=== PATIENT | male | born 1985 | race Caucasian/White ===

== ENCOUNTER 2017-01-23 14:40 | Emergency (ER) | payer OTHER ==
[2017-01-23 14:57] VITALS: TEMP 98.1; BMI 22.4
[2017-01-23] MEDS ORDERED: SODIUM CHLORIDE 0.9% 1000 ML INFUS.BAG IV ONE (16:13)
[2017-01-23 16:32] LABS: BASOPHIL 0.3 % (0-2.0); EOSINOPHIL 0.2 % (0-4.5); MCH 31.3 pg (25.7-33.7); MCHC 33.6 g/dl (32.0-35.9); MEAN CELL VOLUME 93.1 fl (80-96); NEUTROPHILS 84.3 % (42.8-82.8); PLATELET COUNT 194 K/MM3 (134-434); RDW 13.2 % (11.9-15.9)
[2017-01-23] MEDS ORDERED: DIPHTH,PERTUSS(ACELL),TET 0.5 ML DISP.SYRIN IM ONE (16:53)
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
[2017-01-23 16:54] LABS: ALBUMIN 4.2 g/dl (3.4-5.0); ALK PHOS 118 U/L (45-117); ANION GAP 6 (8-16); BILIRUBIN,TOTAL 0.4 mg/dL (0.2-1.0); CALCIUM 9.1 mg/dL (8.5-10.1); CO2 30 mmol/L (21-32); CREATININE 1.1 mg/dL (0.7-1.3); GLUCOSE,RANDOM 96 mg/dL (74-106); SGOT/AST 11 U/L (15-37); SGPT/ALT 26 U/L (12-78); TOT PROT 6.9 g/dl (6.4-8.2)
[2017-01-23] MEDS ORDERED: levETIRAcetam 500 MG/5 ML INJECTION VIAL IVPB ONE (19:54)
[2017-01-23 19:55] VITALS: BP 121/75; PULSE 64
[2017-01-23 19:57] LABS: URINE APPEARANCE CLEAR; URINE BILIRUBIN NEGATIVE (NEGATIVE); URINE BLOOD NEGATIVE (NEGATIVE); URINE COLOR LTYELLOW; URINE GLUCOSE (UA) NEGATIVE (NEGATIVE); URINE KETONE NEGATIVE (NEGATIVE); URINE NITRITE NEGATIVE (NEGATIVE); URINE PROTEIN NEGATIVE (NEGATIVE); URINE UROBILINOGEN NEGATIVE mg/dL (0.2-1.0)
[2017-01-23 20:05] LABS: URINE MARIJUANA THC NEGATIVE ng/ml (CUTOFF=50)
[2017-01-23 22:09] LABS: URINE LEUK ESTERASE Negative (NEGATIVE)
== END 2017-01-23 20:49 | disposition short-term general hospital (02) ==
LOC: JER 14:40
PROC: 3E0234Z Introduction of Serum, Toxoid and Vaccine into Muscle, Percutaneous Approach (ICD-10-PCS; principal; 2017-01-23)
PROC: 3E033GC Introduction of Other Therapeutic Substance into Peripheral Vein, Percutaneous Approach (ICD-10-PCS; 2017-01-23)
DX: S06.379A Contusion, laceration, and hemorrhage of cerebellum with loss of consciousness of unspecified duration, initial encounter (principal); S00.03XA Contusion of scalp, initial encounter; S05.12XA Contusion of eyeball and orbital tissues, left eye, initial encounter; V18.0XXA Pedal cycle driver injured in noncollision transport accident in nontraffic accident, initial encounter; Y92.414 Local residential or business street as the place of occurrence of the external cause; Y93.55 Activity, bike riding; Y99.8 Other external cause status
CPT/HCPCS: 36415; 70450-TC; 80053; 80307; 81003; 83605; 85025; 90715; 99285-25

== ENCOUNTER 2017-12-24 08:23 | Inpatient (IN) | payer OTHER ==
[2017-12-24 08:35] VITALS: BMI 21.5
--- NOTE | 2017-12-24 10:07 | HP ---
COWS - Scale Resting Pulse: 0= [place] 80 or Below Sweatin= Chills/Flushing Restless Observation: 0= Sits Still Pupil Size: 0= Normal to Room Light Bone or Joint Aches: 2= Severe Diffuse Aches Runny Nose/ Eye Tearin= None GI Upset > 30mins: 0= None Tremor Observation: 0= None Yawning Observation: 0= None Anxiety or Irritability: 1=Feels Anxious/Irritable Goose Flesh Skin: 0=Smooth Skin COWS Score: 4 Admission ROS S - HPI Allergies/Adverse Reactions: Allergies Allergy/AdvReac Type Severity Reaction Status Date / Time No Known Allergies Allergy Verified 12/24/17 09:06 History of Present Illness: patient here requesting 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 This is pt's first detox , has not attempted tx prior to today . Latest use xanax - yesterday , oxycodone Wednesday12/22/17 . denies other illicits or ETOH tobacco use : < 1 ppd , denies nrt at this time . pmhx : denies pshx : denies allergies : nkda psych : denies SHX : works for [employer] , admits to driving after use legal : denies lives w/ parents , aware of pt's presence in tx no children utox _ mop, oxy, bzo jaron 0.000 - Ebola screening Have you traveled outside of the country in the last 21 days: No Have you had contact with anyone from an Ebola affected area: No Have you been sick,other than usual withdrawal symptoms: No Do you have a fever: No - Review of Systems Constitutional: See HPI EENT: reports: No Symptoms Reported Respiratory: reports: No Symptoms reported Cardiac: reports: No Symptoms Reported GI: reports: Constipated : reports: No Symptoms Reported Musculoskeletal: reports: See HPI, Back Pain Integumentary: reports: No Symptoms Reported Neuro: reports: Headache, Seizure Endocrine: reports: No Symptoms Reported Hematology: reports: No Symptoms Reported Psychiatric: reports: No Sypmtoms Reported, Judgement Intact, Orientated x3 Other Systems: Reviewed and Negative Patient History - Patient Medical History Hx Asthma: No Hx Chronic Obstructive Pulmonary Disease (COPD): No Hx Cardiac Disorders: No Hx Hypertension: No Hx Seizures: Yes (no meds) Hx Diabetes: No Hx Gastrointestinal Disorders: No Hx Genitourinary Disorders: No Hx Sexually Transmitted Disorders: No Hx Renal Disease (ESRD): No Hx Depression: Yes Hx Suicide Attempt: No Hx Schizophrenia: No - Patient Surgical History Past Surgical History: No Hx Neurologic Surgery: No Hx Cataract Extraction: No Hx Cardiac Surgery: No Hx Lung Surgery: No Hx Breast Surgery: No Hx Breast Biopsy: No Hx Abdominal Surgery: No Hx Appendectomy: No Hx Cholecystectomy: No Hx Genitourinary Surgery: No Hx Section: No Hx Orthopedic Surgery: No Anesthesia Reaction: No - PPD History Previous Implant?: No - Smoking Cessation Smoking history: Current every day smoker Have you smoked in the past 12 months: Yes Aproximately how many cigarettes per day: 15 Initiated information on smoking cessation: No - Substances Abused Alprazolam (Xanax) Route: Inhalation Frequency: 3-6 times per week Amount used: 3 2mg tablets when used Age of first use: 22 Date of Last Use: 12/23/17 ROXYCODONE Route: Inhalation Frequency: Daily Amount used: 5-6 30MG TABLETS Age of first use: 27 Date of Last Use: 12/21/17 Family Disease History - Family Disease History Family History: Denies Admission Physical Exam BHS - Vital Signs Vital Signs: Vital Signs - 24 hr 12/24/17 08:31 Temperature 97.8 F Pulse Rate 42 L Respiratory 18 Rate Blood Pressure 133/76 - Physical General Appearance: Yes: Within Normal Limits, No Apparent Distress, Nourished, Appropriately Dressed HEENTM: Yes: Within Normal Limits, EOMI, Hearing grossly Normal, Normal ENT Inspection, Normocephalic, Normal Voice, LETY, Pharynx Normal Respiratory: Yes: Within Normal Limits, Chest Non-Tender, Lungs Clear, Normal Breath Sounds, No Respiratory Distress, No Accessory Muscle Use Neck: Yes: Within Normal Limits, No masses,lesions,Nodules, Trachea in good position Cardiology: Yes: Within Normal Limits, Regular Rhythm, Regular Rate, Bradycardia , Other (patient reports he plays sport - basketball and baseball, has seen cardiology in the past for bradycardia , no tx recommendations per pt .) Abdominal: Yes: Within Normal Limits, Normal Bowel Sounds, Non Tender, Flat, Soft Genitourinary: Yes: Within Normal Limits Back: Yes: Within Normal Limits, Normal Inspection Musculoskeletal: Yes: Within Normal Limits, full range of Motion, Gait Steady, Pelvis Stable Extremities: Yes: Within Normal Limits, Normal Capillary Refill, Normal Inspection, Normal Range of Motion, Non-Tender Neurological: Yes: Within Normal Limits, Fully Oriented, Alert, Motor Strength 5 /5, Normal Mood/Affect, Normal Response Integumentary: Yes: Within Normal Limits, Normal Color, Dry, Warm Cleared for Admission [facility] - Detox or Rehab [facility] Level of Care: Medically Managed Detox Regimen/Protocol: Methadone/Valium S Breath Alcohol Content Breath Alcohol Content: 0 Urine Drug Screen - Results Drug Screen Negative: No Urine Drug Screen Results: OPI-Opiates, BZO-Benzodiazepines, OXY-Oxycodone
[2017-12-24] MEDS ORDERED: MAGNESIUM CITRATE 300 ML BOTTLE PO PRN (10:14)
[2017-12-24] MEDS ORDERED: IBUPROFEN 400 MG TABLET (FP) PO PRN (10:14)
[2017-12-24] MEDS ORDERED: P-EPHED 60MG/TRIPROLIDI 2.5MG TABLET PO PRN (10:14)
[2017-12-24] MEDS ORDERED: LOPERAMIDE HCL 2 MG CAPSULE PO PRN (10:14)
[2017-12-24] MEDS ORDERED: ACETAMINOPHEN 325 MG TABLET (FP) PO PRN (10:14)
[2017-12-24] MEDS ORDERED: MAG HYDROX/AL HYDROX/SIMETH 30 ML UNIT-DOSE CUP PO PRN (10:14)
[2017-12-24] MEDS ORDERED: MAGNESIUM HYDROX 2400MG/30ML ORAL SUSPENSION 30 ML CUP PO PRN (10:14)
[2017-12-24] MEDS ORDERED: guaiFENesin/D-METHORPHAN HB 10 ML UNIT-DOSE CUPS PO PRN (10:14)
[2017-12-24] MEDS ORDERED: MENTHOL/PHENOL 1 EACH UD MM PRN (10:14)
[2017-12-24] MEDS ORDERED: METHADONE HCL 10 MG TABLET (FOR DETOX USE ONLY) PO ONE ×2 (10:30→23:00)
[2017-12-24] MEDS ORDERED: diazePAM 5 MG TABLET PO ONE (11:20)
[2017-12-24] MEDS: diazePAM 5 MG TABLET PO SCH ×2 (13:06→22:11)
[2017-12-24] MEDS: diazePAM 5 MG TABLET PO PRN (16:58)
[2017-12-24 17:34] LABS: URINE APPEARANCE CLOUDY; URINE BILIRUBIN NEGATIVE (<2.0 mg/dL); URINE COLOR YELLOW; URINE GLUCOSE (UA) NEGATIVE (NEGATIVE); URINE KETONE NEGATIVE (NEGATIVE); URINE LEUK ESTERASE NEGATIVE (NEGATIVE); URINE NITRITE NEGATIVE (NEGATIVE); URINE PROTEIN NEGATIVE (NEGATIVE); URINE UROBILINOGEN NEGATIVE mg/dL (0.2-1.0)
[2017-12-24] MEDS ORDERED: MELATONIN 5 MG TABLETS PO PRN (22:00)
[2017-12-24] MEDS: THIAMINE HCL 100 MG TABLET (FP) PO SCH (22:10)
[2017-12-25] MEDS: diazePAM 5 MG TABLET PO SCH ×3 (05:04→22:00)
[2017-12-25] MEDS: diazePAM 5 MG TABLET PO PRN ×2 (08:20→17:28)
--- NOTE | 2017-12-25 09:44 | PN ---
S CIWA - CIWA Score Nausea/Vomitin-Mild Nausea/No Vomiting Muscle Tremors: 3 Anxiety: 3 Agitation: 2 Paroxysmal Sweats: 3 Orientation: 0-Oriented Tacttile Disturbances: 0-None Auditory Disturbances: 0-None Visual Disturbances: 0-None Headache: 0-None Present CIWA-Ar Total Score: 12 BHS COWS - Scale Resting Pulse: 0= [place] 80 or Below Sweatin=Flushed/Facial Moisture Restless Observation: 3= Extraneous Movement Pupil Size: 0= Normal to Room Light Bone or Joint Aches: 1= Mild Discomfort Runny Nose/ Eye Tearin= Nasal Congestion GI Upset > 30mins: 0= None Tremor Observation of Outstretched Hands: 2= Slight Tremor Visible Yawning Observation: 1= 1-2x During Session Anxiety or Irritability: 2=Irritable/Anxious Goose Flesh Skin: 0=Smooth Skin COWS Score: 12 S Progress Note (SOAP) Subjective: Sweats Sleep disturbance Objective: 12/25/17 09:41 A & O x 3 Vital Signs Temperature 98.2 F 12/25/17 09:02 Pulse Rate 63 12/25/17 09:02 Respiratory Rate 18 12/25/17 09:02 Blood Pressure 115/70 12/25/17 09:02 O2 Sat by Pulse Oximetry (%) Laboratory Last Values Urine Color Yellow 12/24/17 15:30 Urine Appearance Cloudy 12/24/17 15:30 Urine pH 7.0 (5.0-8.0) 12/24/17 15:30 Ur Specific [place] 1.016 (1.001-1.035) 12/24/17 15:30 Urine Protein Negative (NEGATIVE) 12/24/17 15:30 Urine Glucose (UA) Negative (NEGATIVE) 12/24/17 15:30 Urine Ketones Negative (NEGATIVE) 12/24/17 15:30 Urine Blood Negative (NEGATIVE) 12/24/17 15:30 Urine Nitrite Negative (NEGATIVE) 12/24/17 15:30 Urine Bilirubin Negative (<2.0 mg/dL) 12/24/17 15:30 Urine Urobilinogen Negative mg/dL (0.2-1.0) 12/24/17 15:30 Ur Leukocyte Esterase Negative (NEGATIVE) 12/24/17 15:30 UA results noted, labs pending Assessment: 12/25/17 09:43 withdrawal sx Plan: continue detox Increase hydration
[2017-12-25] MEDS ORDERED: METHADONE HCL 10 MG TABLET (FOR DETOX USE ONLY) PO SCH (10:00)
[2017-12-25] MEDS: PRENATAL VITAMINS W/ FOLIC ACID TABLET (FP) PO SCH (10:10)
[2017-12-25 10:56] LABS: HEMATOCRIT 43.3 % (35.4-49); HEMOGLOBIN 14.3 GM/dL (11.7-16.9); MCH 31.8 pg (25.7-33.7); MEAN CELL VOLUME 96.5 fl (80-96); MEAN PLT VOLUME 9.7 fl (7.5-11.1); PLATELET COUNT 252 K/MM3 (134-434); RBC 4.48 M/mm3 (4.00-5.60); RDW 13.8 % (11.9-15.9)
[2017-12-25 11:02] LABS: ALBUMIN 4.4 g/dl (3.4-5.0); ALK PHOS 145 U/L (45-117); ANION GAP 8 MMOL/L (8-16); BILIRUBIN,TOTAL 0.5 mg/dL (0.2-1); BLOOD UREA NITROGEN 13 mg/dL (7-18); CALCIUM 9.5 mg/dL (8.5-10.1); CHLORIDE 107 mmol/L (98-107); CO2 28 mmol/L (21-32); CREATININE 0.7 mg/dL (0.55-1.3); GLUCOSE,RANDOM 151 mg/dL (74-106); POTASSIUM 4.6 mmol/L (3.5-5.1); SGOT/AST 22 U/L (15-37); SGPT/ALT 40 U/L (13-61); SODIUM 143 mmol/L (136-145); TOT PROT 7.4 g/dl (6.4-8.2)
[2017-12-25] MEDS: NICOTINE POLACRILEX 4 MG GUM BUC PRN ×2 (13:47→19:04)
--- NOTE | 2017-12-25 15:52 | EKG ---
Test Reason : Blood Pressure : / mmHG Vent. Rate : 048 BPM Atrial Rate : 048 BPM P-R Int : 160 ms QRS Dur : 104 ms QT Int : 484 ms P-R-T Axes : 017 081 051 degrees QTc Int : 432 ms SINUS BRADYCARDIA WITH SINUS ARRHYTHMIA OTHERWISE NORMAL ECG NO PREVIOUS ECGS AVAILABLE Confirmed by MD Josué, Estevan ([id number]) on 12/25/2017 3:52:08 PM Referred By: Confirmed By:Estevan Moses MD
[2017-12-25] MEDS: THIAMINE HCL 100 MG TABLET (FP) PO SCH (22:00)
[2017-12-26] MEDS: diazePAM 5 MG TABLET PO PRN ×3 (08:19→17:10)
[2017-12-26] MEDS: METHADONE HCL 5 MG TABLET (FOR DETOX USE ONLY) PO SCH (10:06)
[2017-12-26] MEDS: diazePAM 5 MG TABLET PO SCH ×2 (10:06→22:05)
[2017-12-26] MEDS: PRENATAL VITAMINS W/ FOLIC ACID TABLET (FP) PO SCH (10:06)
--- NOTE | 2017-12-26 11:56 | PN ---
[facility] CIWA - CIWA Score Nausea/Vomitin-Mild Nausea/No Vomiting Muscle Tremors: 3 Anxiety: 3 Agitation: 3 Paroxysmal Sweats: 3 Orientation: 0-Oriented Tacttile Disturbances: 1-Very Mild Itch/Numbness Auditory Disturbances: 0-None Visual Disturbances: 0-None Headache: 2-Mild CIWA-Ar Total Score: 16 BHS COWS - Scale Resting Pulse: 0= [place] 80 or Below Sweatin= Chills/Flushing Restless Observation: 3= Extraneous Movement Pupil Size: 1= Pupils >than Normal Bone or Joint Aches: 2= Severe Diffuse Aches Runny Nose/ Eye Tearin= Runny Nose/Eyes GI Upset > 30mins: 2= Nausea/Diarrhea Tremor Observation of Outstretched Hands: 2= Slight Tremor Visible Yawning Observation: 1= 1-2x During Session Anxiety or Irritability: 2=Irritable/Anxious Goose Flesh Skin: 0=Smooth Skin COWS Score: 16 [facility] Progress Note (SOAP) Subjective: Interrupted sleep Objective: 12/26/17 11:52 Last Vital Signs Temp Pulse Resp BP Pulse Ox 97.5 F L 60 20 98/62 12/26/17 09:17 12/26/17 09:17 12/26/17 09:17 12/26/17 09:17 Laboratory Tests 12/24/17 12/25/17 12/25/17 15:30 06:10 06:10 WBC 7.0 RBC 4.48 Hgb 14.3 Hct 43.3 MCV 96.5 H MCH 31.8 MCHC 33.0 RDW 13.8 Plt Count 252 D MPV 9.7 Sodium 143 Potassium 4.6 Chloride 107 Carbon Dioxide 28 Anion Gap 8 BUN 13 Creatinine 0.7 Creat Clearance w eGFR > 60 Random Glucose 151 H Calcium 9.5 Total Bilirubin 0.5 AST 22 ALT 40 Alkaline Phosphatase 145 H Total Protein 7.4 Albumin 4.4 Urine Color Yellow Urine Appearance Cloudy Urine pH 7.0 Ur Specific [place] 1.016 Urine Protein Negative Urine Glucose (UA) Negative Urine Ketones Negative Urine Blood Negative Urine Nitrite Negative Urine Bilirubin Negative Urine Urobilinogen Negative Ur Leukocyte Esterase Negative RPR Titer 12/25/17 06:10 WBC RBC Hgb Hct MCV MCH MCHC RDW Plt Count MPV Sodium Potassium Chloride Carbon Dioxide Anion Gap BUN Creatinine Creat Clearance w eGFR Random Glucose Calcium Total Bilirubin AST ALT Alkaline Phosphatase Total Protein Albumin Urine Color Urine Appearance Urine pH Ur Specific [place] Urine Protein Urine Glucose (UA) Urine Ketones Urine Blood Urine Nitrite Urine Bilirubin Urine Urobilinogen Ur Leukocyte Esterase RPR Titer Nonreactive Labs reviewed: serum glucose 151 Assessment: 12/26/17 11:54 Withdrawal symptoms Noted with hyperglycemia Plan: Continue detox Hyperglycemia: patient denies h/o DM, repeat fasting glucose, send HbA1c; start finger stick glucose ac meal with insulin sliding scale coverage
[2017-12-26] MEDS: NICOTINE POLACRILEX 4 MG GUM BUC PRN (12:10)
[2017-12-26] MEDS: INSULIN SLIDING SCALE (NOVOLOG) 1 VIAL SQ SCH (16:39)
[2017-12-26] MEDS: THIAMINE HCL 100 MG TABLET (FP) PO SCH (22:05)
[2017-12-26] MEDS: hydrOXYzine PAMOATE 25 MG CAPSULE (FP) PO PRN (22:10)
[2017-12-27] MEDS: INSULIN SLIDING SCALE (NOVOLOG) 1 VIAL SQ SCH ×3 (07:43→16:37)
[2017-12-27] MEDS ORDERED: METHADONE HCL 5 MG TABLET (FOR DETOX USE ONLY) PO SCH ×2 (10:00→11:30)
--- NOTE | 2017-12-27 10:41 | PN ---
S Progress Note (SOAP) Subjective: No complaints offered Requesting early discharge tomorrow to allow him attend rehab at [place] Objective: 12/27/17 10:39 A & O x 3 Appears comfortable, noted ambulating steadily on unit Vital Signs Temperature 97.1 F L 12/27/17 06:38 Pulse Rate 56 L 12/27/17 06:38 Respiratory Rate 18 12/27/17 06:38 Blood Pressure 106/60 12/27/17 06:38 O2 Sat by Pulse Oximetry (%) Assessment: 12/27/17 10:40 withdrawal sx Plan: Methadone regimen adjusted to allow for d/c tomorrow. Continue detox today
[2017-12-27] MEDS: METHADONE HCL 5 MG TABLET (FOR DETOX USE ONLY) PO SCH (10:59)
[2017-12-27] MEDS ORDERED: METHADONE HCL 40 MG DISPERSABLE TABLET PO SCH (11:00)
[2017-12-27] MEDS ORDERED: METHADONE HCL 10 MG TABLET (FOR DETOX USE ONLY) PO SCH (11:45)
[2017-12-27] MEDS: diazePAM 5 MG TABLET PO SCH ×2 (11:57→22:03)
[2017-12-27] MEDS: PRENATAL VITAMINS W/ FOLIC ACID TABLET (FP) PO SCH (11:57)
[2017-12-27] MEDS: hydrOXYzine PAMOATE 25 MG CAPSULE (FP) PO PRN ×2 (15:58→22:03)
[2017-12-27] MEDS: THIAMINE HCL 100 MG TABLET (FP) PO SCH (22:03)
[2017-12-28] MEDS ORDERED: METHADONE HCL 5 MG TABLET (FOR DETOX USE ONLY) PO SCH ×2 (06:00)
[2017-12-28 06:31] VITALS: BP 97/62; PULSE 58; TEMP 97
[2017-12-28] MEDS: INSULIN SLIDING SCALE (NOVOLOG) 1 VIAL SQ SCH (06:39)
[2017-12-28] MEDS ORDERED: diazePAM 5 MG TABLET PO SCH (10:00)
[2017-12-28] MEDS ORDERED: METHADONE HCL 10 MG TABLET (FOR DETOX USE ONLY) PO SCH (10:00)
--- NOTE | 2017-12-28 13:19 | DS ---
[facility] Detox Discharge Summary Admission Date: 12/24/17 Discharge Date: 12/28/17 - History Present History: Opioid Dependence, Sedative Dependence - Physical Exam Results Vital Signs: Vital Signs Temperature 97.0 F L 12/28/17 06:30 Pulse Rate 58 L 12/28/17 06:30 Respiratory Rate 12/28/17 06:30 Blood Pressure 97/62 12/28/17 06:30 O2 Sat by Pulse Oximetry (%) Pertinent Admission Physical Exam Findings: PATIENT DISCHARGED FROM DETOX TODAY. PATIENT TOLERATED DETOX WELL. PATIENT CLINICALLY STABLE. IN NAD. DISCHARGE INSTRUCTIONS PROVIDED TO PATIENT UPON DISCHARGE. - Treatment Hospital Course: Detox Protocol Followed, Detoxed Safely, Responded well, Discharged Condition Good - Medication Discharge Medications: Ambulatory Orders NK [No Known Home Medication] 12/24/17 - AMA Did Patient Leave Against Medical Advice: No
[2017-12-29] MEDS ORDERED: METHADONE HCL 5 MG TABLET (FOR DETOX USE ONLY) PO SCH (06:00)
== END 2017-12-28 08:13 | disposition home or self-care (01) | DRG 773 ==
LOC: YASAS 08:23 → Y3N 11:11
PROC: HZ2ZZZZ Detoxification Services for Substance Abuse Treatment (ICD-10-PCS; principal; 2017-12-24)
DX: F11.23 Opioid dependence with withdrawal (principal); F13.20 Sedative, hypnotic or anxiolytic dependence, uncomplicated; F17.213 Nicotine dependence, cigarettes, with withdrawal; R56.9 Unspecified convulsions; R73.9 Hyperglycemia, unspecified; Z86.69 Personal history of other diseases of the nervous system and sense organs
CPT/HCPCS: 36415; 80053; 81003; 82947; 82962; 83036; 85027; 86593; 93005; 93010